=== PATIENT | male | born 1955 | race Hispanic/Latino ===

== ENCOUNTER 2020-09-30 06:43 | Day surgery (SDC) | payer MEDICARE ==
[2020-09-24 13:12] LABS: BASOPHILS % (AUTO) 0.9 % (0.0-5.0); HEMATOCRIT 44.7 % (42-54); LYMPHOCYTES % (AUTO) 14.2 % (21.0-51.0); MEAN CORPUSCULAR HEMOGLOBIN 30.1 pg (27.0-33.0); MEAN CORPUSCULAR HGB CONC 33.6 g/dL (32.0-36.0); MEAN CORPUSCULAR VOLUME 89.6 fL (79-99); MONOCYTES % (AUTO) 7.1 % (3.0-13.0); NEUTROPHILS % (AUTO) 72.4 % (40.0-77.0); PLATELET COUNT (AUTO) 344 K/uL (130-400); RED BLOOD CELL COUNT(AUTO) 4.99 MIL/uL (4.50-6.20); RED CELL DISTRIBUTION WIDTH 17.9 % (11.0-15.5); WHITE BLOOD COUNT (AUTO) 12.8 K/uL (4.8-10.8)
[2020-09-24 13:25] LABS: INR 1.06 (0.85-1.15); PROTHROMBIN TIME 11.5 SEC (9.6-11.6)
[2020-09-24 13:26] LABS: PARTIAL THROMBOPLASTIN TIME 31.5 SEC (26.3-35.5)
[2020-09-24 13:29] LABS: ALBUMIN 3.4 g/dL (3.5-5.0); BILIRUBIN,TOTAL 0.5 mg/dL (0.2-1.0); CREATININE 3.6 mg/dL (0.5-1.5); POTASSIUM 4.1 mmol/L (3.5-5.1); TOTAL PROTEIN, SERUM 9.1 g/dL (6.0-8.3)
[2020-09-27 14:52] VITALS: BP 113/58
[2020-09-30] VITALS (17 sets, daily range): BP systolic 127–141; BP diastolic 55–66
[~2020-09-30] VITALS: Ht 162.6 cm; Wt 100.7 kg
[~2020-09-30 06:43] MED LIST: AEC81 PO; AURYXIA PO; CLOP75TA14 PO; FLUT1BLS3 IH; FOLI1TAB15 PO; INSU100C6 SQ; INSU100V12 SQ; ISOS30TA92 PO; LEVO112T7 PO; METO-409 PO; OMEG-148 PO; OMEP20CA12 PO; PRAV40TA3 PO
[2020-09-30] MEDS ORDERED: SUCCINYLCHOLINE CHLORIDE 20 MG/ML 10 ML VIAL ONE (07:07)
[2020-09-30] MEDS ORDERED: PROPOFOL 10 MG/ML 20ML VIAL IV ONE (07:07)
[2020-09-30] MEDS ORDERED: DEXAMETHASONE SOD PHOSPHATE 10MG/ML 1ML VIAL ONE (07:07)
[2020-09-30] MEDS ORDERED: ONDANSETRON 4MG INJ ONE (07:07)
[2020-09-30] MEDS ORDERED: LIDOCAINE PF 100MG/5ML (2%) SYRINGE 5ML ONE (07:07)
[2020-09-30] MEDS ORDERED: MIDAZOLAM HCL 1 MG/ML 2ML VIAL ONE (07:08)
[2020-09-30] MEDS ORDERED: NEOSTIGMINE 5MG/5ML SYR IV ONE (07:08)
[2020-09-30] MEDS ORDERED: ROCURONIUM 10MG/1ML SYR 10 MG/ML ML ONE ×2 (07:08→09:23)
[2020-09-30] MEDS ORDERED: FENTANYL CITRATE PF 50 MCG/1 ML 2ML VIAL ONE (07:08)
[2020-09-30] MEDS ORDERED: GLYCOPYRROLATE 1 MG/5 ML SYRINGE ONE (07:08)
[2020-09-30] MEDS ORDERED: CLINDAMYCIN IVPB 900MG/50ML 50 ML IV ONE (07:20)
[2020-09-30] MEDS ORDERED: CEFAZOLIN SODIUM 1 GM VIAL IVP ONE (08:00)
[2020-09-30] MEDS ORDERED: 0.9%NACL 1000ML 1,000 ML IV SCH (08:00)
[2020-09-30] MEDS ORDERED: KETAMINE 50MG/ML SYRINGE 50 MG/ML DISP.SYRIN IV ONE (08:02)
[2020-09-30] MEDS ORDERED: EPHEDRINE SULFATE 50 MG/ML AMPULE ONE (08:12)
[2020-09-30 08:27] LABS: CREATININE 5.7 mg/dL (0.5-1.5); POTASSIUM 3.7 mmol/L (3.5-5.1)
[2020-09-30] MEDS ORDERED: SUGAMMADEX SODIUM 200 MG/2 ML VIAL IV ONE (10:26)
[2020-09-30] MEDS ORDERED: HEPARIN 10,000 UNIT/10ML (1,000 UNIT/ML) VIAL ONE (10:38)
== END 2020-09-30 12:29 | disposition home or self-care (01) ==
LOC: DAH 06:43
PROVIDERS: ATTEND Student in an Organized Health Care Education/Training Program
DX: I13.2 Hypertensive heart and chronic kidney disease with heart failure and with stage 5 chronic kidney disease, or end stage renal disease (principal); E11.22 Type 2 diabetes mellitus with diabetic chronic kidney disease; I25.10 Atherosclerotic heart disease of native coronary artery without angina pectoris; N18.6 End stage renal disease; K21.9 Gastro-esophageal reflux disease without esophagitis; I50.9 Heart failure, unspecified; Z95.1 Presence of aortocoronary bypass graft; Z88.0 Allergy status to penicillin; Z79.82 Long term (current) use of aspirin; Z79.84 Long term (current) use of oral hypoglycemic drugs; Z79.899 Other long term (current) drug therapy; Z20.828 Contact with and (suspected) exposure to other viral communicable diseases
CPT/HCPCS: 36415 ×2; 36821; 71045; 80048; 80053; 82948 ×2; 85025; 85610; 85730; 93005; A4215; A4221; A4222; A4223; A4510; A4600; A4649 ×2; A4663; A6207; A6260; C1713 ×2; C9803; G0168; J0330; J1100; J1644 ×2; J2001; J2250; J2405; J2704; J2710; J3010; J3490 ×4; J7030; U0003